=== PATIENT | male | born 1955 | race Caucasian/White ===

== ENCOUNTER 2024-03-03 07:33 | Inpatient (IN) | payer OTHER, MEDICAID ==
[~2024-03-03] VITALS: Ht 175.3 cm; Wt 65.8 kg
[2024-03-03 08:39] LABS: Basophils # (auto) 0.1 10 ^3/uL (0-0.2); Basophils % (auto) 0.3 % (0.0-2.0); Eosinophils # (auto) 0 10 ^3/uL (0-0.8); Hematocrit 48.4 % (41.0-53.0); Hemoglobin 17.5 g/dL (13.5-17.5); Lymphocytes # (auto) 0.7 10 ^3/uL (0.4-5.4); Lymphocytes % (auto) 3.4 % (10.0-50.0); Mean Corpuscular Hemoglobin 33.4 pg (28.0-32.0); Mean Corpuscular Hgb Conc. 36.1 g/dL (32.0-36.0); Mean Corpuscular Volume 92.6 fL (80.0-100.0); Monocytes # (auto) 0.5 10 ^3/uL (0-1.3); Monocytes % (auto) 2.7 % (0.0-12.0); Neutrophils # (auto) 18.2 10 ^3/uL (1.6-8.6); Neutrophils % (auto) 93.6 % (37.0-80.0); Nucleated Red Blood Cells % 0.5 %; Platelet Count (auto) 218 10^3/uL (140-450); Red Blood Cells 5.23 10^6/uL (4.5-5.90); Red Cell Distribution Width 12.6 % (11.8-14.3); White Blood Cell 19.5 10^3/uL (4.4-10.8)
[2024-03-03 08:43] LABS: Chloride 98 mmol/L (98-107); Sodium 140 mmol/L (136-145)
[2024-03-03 08:44] LABS: Anion Gap 11 (5-15); Carbon Dioxide 31 mmol/L (20-31)
[2024-03-03 08:50] LABS: BUN/Creatinine Ratio 12.9 (10.0-20.0)
[2024-03-03 08:55] LABS: Blood Urea Nitrogen 27 mg/dL (9-23); Calcium 10.9 mg/dL (8.7-10.4); Glucose 146 mg/dL (74-106)
[2024-03-03] MEDS: NITROGLYCERIN 0.4 MG SL TAB SL ONE (09:17)
[2024-03-03] MEDS: ONDANSETRON ODT 4 MG TAB PO ONE (09:18)
[2024-03-03 09:26] LABS: Lipase 33 U/L (12-53)
[2024-03-03] MEDS: POTASSIUM CHL 20 Meq TABLET PO ONE (10:22)
--- NOTE | 2024-03-03 10:26 | ED.PDOC ---
History of Present Illness HPI Comments 68 y/o M, with a Hx of HTN, bilateral AKA s/p MRSA (R-leg) and DVT (L-leg), and tobacco use, is BIBA for c/o non-radiating, sternal chest pain, nausea, and dry- heaving since 0300, this morning. Patient reports on sudden and unprovoked onset of symptoms that awoke him from his sleep, this morning, that he comments on being constant and "crushing" in quality, with no prior Hx of in the past. Patient endorses no further relevant or pertinent Hx in addition to recent stress, strenuous activities, travel, spoiled food or contaminated fluid intake, sick contact, or substance use/exposure, with exception of tobacco cigarette use and not taking his Clonidine medication, this morning, due to the pain. He denies having any shortness of breath, palpitations, vomiting, fever, chills, or other associated symptoms or modifiers at this time. 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, Medications, Allergies Allergies: Coded Allergies: NO KNOWN ALLERGIES (Unverified , 03/03/24) Home Meds Reported Medications Umeclidinium-Vilanterol (Anoro Ellipta 62.5-25 Mcg/INH) 1 Aer Aer 03/03/24 Albuterol Sulfate (Albuterol Sulfate Hfa) 108 Mcg/Act Aer, INH 03/03/24 Chlorthalidone (Chlorthalidone) 25 Mg Tab, 1 TAB PO DAILY 03/03/24 Clonidine Hydrochloride (Clonidine Hcl) 0.2 Mg Tab, 1 TAB PO TID 03/03/24 Verapamil Hcl (Verapamil Hcl Er) 180 Mg Tab, 1 TAB PO DAILY 03/03/24 Gabapentin (Gabapentin) 600 Mg Tab, 1 TAB PO BID 03/03/24 Aspirin (Chewable Aspirin) 81 Mg Chw, 1 TAB PO DAILY 03/03/24 Tamsulosin Hcl (Tamsulosin Hcl) 0.4 Mg Cap, 1 CAP PO 03/03/24 Enalapril Maleate (Enalapril Maleate) 20 Mg Tab, PO 03/03/24 Metoprolol Tartrate (LOPRESSOR TABLET) 50 Mg Tb, 1 TAB PO BID 03/03/24 Information Source: Patient, Emergency Med Personnel Mode of Arrival: EMS Severity: Moderate Timing: Hours Duration: Since onset Prehospital treatment: 12 Lead EKG, Victim Advocate Past Medical History PAST MEDICAL HISTORY: HTN Past Medical History (Other): MRSA, DVT Surgical History: AKA (bilateral ) Family History Family History: Unknown Social History Smoker: Cigarettes, Less Than 1 Pack/Day (1-2 cigarettes ) Alcohol: Denies ETOH Use Drugs: Denies Drug Use Lives In: Home Cardiovascular: reports: chest pain Gastrointestinal: reports: nausea, others (dry-heaving ) All Other Systems: Reviewed and Negative (negative otherwise stated in HPI) Physical Exam General Appearance: No Apparent Distress, Normal HEENT: Normal ENT Inspection, Pharynx Normal, TMs Normal Neck: Full Range of Motion, Non-Tender, Normal, Normal Inspection Respiratory: Chest Non-Tender, Lungs Clear, No Accessory Muscle Use, No Respira tory Distress, Normal Breath Sounds Cardiovascular: No Edema, No JVD, No Murmur, No Gallop, Normal Peripheral Pulses, Regular Rate/Rhythm Breast Exam: Deferred Gastrointestinal: No Organomegaly, Non Tender, No Pulsatile Mass, Normal Bowel Sounds, Soft Genitalia: Deferred Pelvic: Deferred Rectal: Deferred Extremities: No calf tenderness, Normal capillary refill, Non-tender, No pedal edema, Other (bilateral above) Musculoskeletal : Apperance: Normal Neurologic: Alert, equipment service lead II-XII nml as Tested, No Motor Deficits, Normal Affect, Normal Mood, No Sensory Deficits Cerebellar Function: Normal Reflexes: Normal Skin: Dry, Normal Color, Warm Lymphatic: No Adenopathy Was a procedure done? Was a procedure done?: No EKG EKG : Pulse Rate (adult): 89 [employer]: Normal Cardiac Rhythm: NSR, PVC's Block: None Hypertrophy: None ST: Nonsp Differential Dx Considerations may include: UT, PE, ACS, pericarditis, costochondritis, angina, anxiety, gastritis, gastroenteritis, viral syndrome, electrolyte imbalance X-Ray, Labs, Meds, VS Vital Signs Date Time Temp Pulse Resp B/P (MAP) Pulse Ox O2 Delivery O2 Flow Rate FiO2 03/03/24 10:28 168/75 03/03/24 10:26 89 03/03/24 09:52 108 03/03/24 09:52 98.7 108 20 168/95 (119) 94 98.7 03/03/24 09:17 186/95 03/03/24 08:43 98.6 84 18 197/99 (131) 96 03/03/24 08:41 98.7 76 18 159/99 (119) 76 98.7 03/03/24 08:41 76 03/03/24 08:16 89 Lab Test 03/03/24 10:22 03/03/24 08:12 Range/Units Troponin I High Sensitivity 13 11 </=54 ng/L White Blood Count 19.5 H 4.4-10.8 10^3/uL Red Blood Count 5.23 4.5-5.90 10^6/uL Hemoglobin 17.5 13.5-17.5 g/dL Hematocrit 48.4 41.0-53.0 % Mean Corpuscular Volume 92.6 80.0-100.0 fL Mean Corpuscular Hemoglobin 33.4 H 28.0-32.0 pg Mean Corpuscular Hemoglobin Concent 36.1 H 32.0-36.0 g/dL Red Cell Distribution Width 12.6 11.8-14.3 % Platelet Count 218 140-450 10^3/uL Mean Platelet Volume 7.2 6.9-10.8 fL Neutrophils (%) (Auto) 93.6 H 37.0-80.0 % Lymphocytes (%) (Auto) 3.4 L 10.0-50.0 % Monocytes (%) (Auto) 2.7 0.0-12.0 % Eosinophils (%) (Auto) 0.0 0.0-7.0 % Basophils (%) (Auto) 0.3 0.0-2.0 % Neutrophils # (Auto) 18.2 H 1.6-8.6 10 ^3/uL Lymphocytes # (Auto) 0.7 0.4-5.4 10 ^3/uL Monocytes # (Auto) 0.5 0-1.3 10 ^3/uL Eosinophils # (Auto) 0 0-0.8 10 ^3/uL Basophils # (Auto) 0.1 0-0.2 10 ^3/uL Nucleated Red Blood Cells 0.5 % Sodium Level 140 136-145 mmol/L Potassium Level 3.0 L 3.5-5.1 mmol/L Chloride Level 98 98-107 mmol/L Carbon Dioxide Level 31 20-31 mmol/L Anion Gap 11 5-15 Blood Urea Nitrogen 27 H 9-23 mg/dL Creatinine 2.09 H 0.700-1.30 mg/dL Glomerular Filtration Rate Calc 34 >90 mL/min BUN/Creatinine Ratio 12.9 10.0-20.0 Serum Glucose 146 H 74-106 mg/dL Hemoglobin A1c 5.3 <5.7 % A1C Calcium Level 10.9 H 8.7-10.4 mg/dL Lipase 33 12-53 U/L Current Medications Medications (Trade) Dose Ordered Sig/Isabel Route Start Time Stop Time Status Last Admin Nitroglycerin (Ntrostat Sublingual) 0.4 mg ONCE ONCE SL 03/03/24 09:15 03/03/24 09:16 DC 03/03/24 09:17 Ondansetron HCl (Zofran Po) 4 mg ONCE ONCE PO 03/03/24 09:15 03/03/24 09:16 DC 03/03/24 09:18 Sodium Chloride 500 ml @ 500 mls/hr Q1H ONCE IV 03/03/24 10:15 03/03/24 11:14 DC 03/03/24 10:28 Potassium Chloride (Klor-Con Tablet) 40 meq ONCE ONCE PO 03/03/24 10:15 03/03/24 10:16 DC 03/03/24 10:22 Hydralazine HCl (Apresoline Injection) 10 mg Q6HP PRN IV 03/03/24 10:30 03/03/24 16:30 [place] [address] Ph: [phone] DIAGNOSTIC IMAGING Diagnostic Imaging Report : [id number] Signed PATIENT: MARY JO KATZ ACCT: [id number] UNIT: [id number] : 1955 LOC: TELE ROOM / BED: [address] [place] [address] AGE / SEX: 68 / M ADM STATUS: ADM IN SERVICE 1045 ORDERING PHYSICIAN: VANESSA CRUZ PROCEDURE(s): ABPL - CT AB PEL WO CON-NO ORAL OR IV REASON: epigastric pain ORDER NUMBER(s): [id number], ACCESSION NUMBER(s): [id number] Exam: CT CT AB PEL WO CON-NO ORAL OR IV History: epigastric pain Comparison Study: None Technique: Multidetector spiral CT of the abdomen was performed from lung bases to pubic symphysis. Imaging was performed without IV contrast. Axial, coronal and sagittal multiplanar reformats were obtained from the axial data set by the technologist. Radiation Dose : 1. Abdomen/Pelvis: CTDIvol 8.0 mGy, DLP 413.81 mGy*cm. Findings: Evaluation of solid organs is limited due to lack of intravenous contrast use. Lung Bases: Nodular densities in the left lower lobe may reflect mild pneumonia Liver: The liver is normal in size. No focal lesions. Gallbladder and Biliary Tree: Unremarkable Spleen: Unremarkable Pancreas: The pancreas is grossly normal in appearance. Adrenal Glands: Unremarkable Kidneys: Kidneys are grossly normal without calculi or hydronephrosis. Bladder: Grossly unremarkable for degree of distention. Bowel: The stomach is grossly normal in appearance. Moderate concentric wall thickening of the descending colon and sigmoid colon, suggestive of mild infectious/inflammatory colitis . The appendix is not visualized; however, no secondary findings of acute appendicitis identified. Ascites: Absent Lymphadenopathy: No mesenteric, retroperitoneal or periportal lymphadenopathy. Abdominal Wall and Mesentery: Unremarkable. Vasculature: The visualized abdominal aorta is normal in size and caliber. Evaluation of abdominal and pelvic vessels is limited due to lack of intravenous contrast. Pelvic Organs: Unremarkable Musculoskeletal: No aggressive focal bony lesions, acute fractures or dislocation. Moderate degenerative changes throughout the lumbar spine. Bilateral iliac artery stents are noted. IMPRESSION: 1. Moderate concentric wall thickening of the descending colon and sigmoid colon, suggestive of mild infectious/inflammatory colitis . 2. Nodular left lower lobe densities may reflect mild pneumonia. Radiation optimization: All CT scans at this facility use at least one of these dose optimization techniques: automated exposure control mA and/or kV adjustment per patient size (includes targeted exams where dose is matched to clinical indication) or iterative reconstruction. ATED BY: CAMERON EMMANUEL MD DICTATED DATE/TIME: 03/03/241313 SIGNED BY: CAMERON EMMANUEL MD SIGNED DATE/TIME: 03/03/241313 CC: [address] [address] Ph: [phone] DIAGNOSTIC IMAGING Diagnostic Imaging Report : [id number] Signed PATIENT: MARY JO KATZ ACCT: [id number] UNIT: [id number] : 1955 LOC: TELE ROOM / BED: [facility] / A AGE / SEX: 68 / M ADM STATUS: ADM IN SERVICE 41 ORDERING PHYSICIAN: VANESSA CRUZ PROCEDURE(s): CXR1 - CHEST XRAY 1 VIEW REASON: chest pain ORDER NUMBER(s): [id number], ACCESSION NUMBER(s): [id number] CHEST RADIOGRAPH Indication: chest pain Technique: Single frontal view of the chest was obtained COMPARISON: None FINDINGS: Lines and Tubes: None Lungs: Left basilar opacities may reflect atelectasis or mild pneumonia. Pleura: No effusion. No pneumothorax. Cardiomediastinal contours: Unremarkable Bones: Unremarkable IMPRESSION: 1. Left basilar opacities may reflect atelectasis or mild pneumonia ATED BY: CAMERON EMMANUEL MD DICTATED DATE/TIME: 03/03/241248 SIGNED BY: CAMERON EMMANUEL MD SIGNED DATE/TIME: 03/03/241248 CC: 68-year-old male presents here with chest discomfort. On my examination he reports it is pressure-like discomfort. I am concerned about cardiac disease. EKG does demonstrates nonspecific ST changes. Blood work has been done which demonstrates a leukocytosis of 19.5. Chest x-ray demonstrates questionable pneumonia. Although patient does not endorse any cough cold runny nose type of symptoms. Exact cause of his leukocytosis is unclear. Blood work also demonstrates potassium of 3.0 which is low. Also demonstrates evidence of acute kidney injury. First set troponin is negative. I am concerned about acute coronary syndrome. Hospitalist team has been consulted. Time of 1ST Reevaluation: 10:00 Reevaluation 1ST: Unchanged Patient Education/Counseling: Diagnosis, Treatment Family Education/Counseling: No Family Present Departure 1 Departure Time of Disposition: 10:10 Impression: Primary Impression: Chest pain Qualified Codes: R07.9 - Chest pain, unspecified Additional Impressions: Leukocytosis Qualified Codes: D72.829 - Elevated white blood cell count, unspecified Hyperkalemia ISABELA (acute kidney injury) Hypercalcemia Disposition: ADMITTED INPATIENT Admit to: Tele Condition: Guarded Critical Care Note Critical Care Time?: No Stability Stability form required: No Heart Score Heart Score: Heart Score Response (Comments) Value History Highly Suspicious 2 EKG Repolarization Disturb 1 Age >65 2 Risk Factors 1 or 2 risk factors 1 Troponin Normal limit 0 Total 6 I personally scribed for SHERRI GRANT MD ([email or web address]) on 03/03/24 at 10:26. Electronically submitted by Andrew Bertrand ([email or web address]). I personally scribed for SHERRI GRANT MD ([email or web address]) on 03/03/24 at 11:53. Electronically submitted by Andrew Bertrand ([email or web address]). I personally scribed for SHERRI GRANT MD ([email or web address]) on 03/03/24 at 15:58. Electronically submitted by Andrew Bertrand [email or web address]). SHERRI GRANT MD Mar 03, 2024 10:26
[2024-03-03] MEDS: SODIUM CHLORIDE 0.9% 500 ML IV ONE (10:28)
[2024-03-03] MEDS ORDERED: DEXTROSE (50%) 50ML SYRG IV PRN (10:30)
[2024-03-03] MEDS ORDERED: MORPHINE SULFATE 4 MG/ML SYR/VIAL IV PRN (11:00)
[2024-03-03] MEDS ORDERED: MORPHINE SULFATE INJ 2 MG/ml SYRG IV PRN (11:00)
[2024-03-03] MEDS ORDERED: NITROGLYCERIN 0.4 MG SL TAB SL PRN ×2 (11:00)
[2024-03-03] MEDS ORDERED: LORazepam 0.5 MG TAB PO PRN (11:00)
[2024-03-03] MEDS ORDERED: ENAL1TAB48 PO (11:08)
[2024-03-03] MEDS ORDERED: ALBU108A5 INH (11:08)
[2024-03-03] MEDS ORDERED: CHLO25TA2 PO (11:08)
[2024-03-03] MEDS ORDERED: CLON0.2T PO (11:08)
[2024-03-03] MEDS ORDERED: GABA-339 PO (11:08)
[2024-03-03] MEDS ORDERED: ASPI1CHW5 PO (11:08)
[2024-03-03] MEDS ORDERED: VERA180T60 PO (11:08)
[2024-03-03] MEDS ORDERED: MET50T PO (11:08)
[2024-03-03] MEDS ORDERED: TAMS0.4C39 PO (11:08)
[2024-03-03] MEDS ORDERED: UMEC1AER (11:08)
--- NOTE | 2024-03-03 11:10 | DVHHP2 ---
History of Present Illness Reason for Visit: Chest pain History of Present Illness Arthur Lara is a 68-year-old male with past medical history of hypertension and bilateral lower extremity amputee who presents to the ED for chest pain and shortness of breath, nausea, and abdominal pain x 1 day. Upon examination patient states that he has been having epigastric pain 8/10 currently. Patient also reports that he is a bilateral amputee wheelchair-bound, had both lower extremities amputated 4 years ago at [facility]. Patient reports that it was due to blood clots and a MRSA infection. Patient states for the last day he has been feeling fatigued. He also reports that he takes Flomax to help with vo iding. Patient reports that he did not take his morning medications today due to pain. Patient denies fever, chills, vomiting, diarrhea, and back pain. Cardiovascular: HTN Past Surgical History Bilateral lower extremity amputee 4 years ago at [facility] Smoke: <1 pack per day ALCOHOL: occassional Drugs: Marijuana Lives: with Family Domestic Violence: Neg Review of Systems Constitutional: No: Fever, Chills, Sweats, Weakness, Malaise, Other Eyes: No: Pain, Vision change, Conjunctivae inflammation, Eyelid inflammation, Other, Redness ENT: No: Ear pain, Ear discharge, Nose pain, Nose discharge, Nose congestion, Mouth pain, Mouth swelling, Throat pain, Throat swelling, Other Respiratory: Shortness of breath; No: Cough, Dry, SOB with excertion, Wheezing, Hemoptysis, Pleuritic Pain, Sputum, Wheezing, Other Cardiovascular: Chest Pain; No: Palpitations, Orthopnea, Paroxysmal Noc. Dyspnea, Edema, Lt Headedness, Other Gastrointestinal: Nausea, Abdominal Pain; No: Vomiting, Diarrhea, Constipation, Melena, Hematochezia, Other Genitourinary: No Dysuria, No Frequency, No Incontinence, No Hematuria, No Retention, No Other Musculoskeletal: No: other, neck pain, shoulder pain, arm pain, back pain, hand pain, leg pain, foot pain Skin: No: Rash, Lesions, Jaundice, Bruising, Other Neurological: No: Weakness, Numbness, Incoordination, Change in speech, Confusion, Seizures, Other Allergies: Coded Allergies: NO KNOWN ALLERGIES (Unverified , 03/03/24) Medications Current Medications Medications Dose Ordered Sig/Isabel Route Start Time Stop Time Status Last Admin Dose Admin Hydralazine HCl 10 mg Q6HP PRN IV 03/03/24 10:30 UNV Exam Vital Signs Vital Signs Date Time Temp Pulse Resp B/P (MAP) Pulse Ox O2 Delivery O2 Flow Rate FiO2 03/03/24 09:52 108 03/03/24 09:52 98.7 20 168/95 (119) 94 98.7 General Appearance: Alert, Oriented X3, Cooperative, mild distress HEENT: Atraumatic, PERRLA, EOMI Respiratory: Normal air movement Cardiovascular: Normal S1, Normal S2 Abdominal: Soft Extremities: Other (Bilateral lower extremity amputee) Skin: No significant lesion Neuro: Normal speech, Normal tone Psych/Mental Status: Mental status NL, Mood NL Labs/Xrays Labs Test 03/03/24 08:12 Range/Units White Blood Count 19.5 H 4.4-10.8 10^3/uL Red Blood Count 5.23 4.5-5.90 10^6/uL Hemoglobin 17.5 13.5-17.5 g/dL Hematocrit 48.4 41.0-53.0 % Mean Corpuscular Volume 92.6 80.0-100.0 fL Mean Corpuscular Hemoglobin 33.4 H 28.0-32.0 pg Mean Corpuscular Hemoglobin Concent 36.1 H 32.0-36.0 g/dL Red Cell Distribution Width 12.6 11.8-14.3 % Platelet Count 218 140-450 10^3/uL Mean Platelet Volume 7.2 6.9-10.8 fL Neutrophils (%) (Auto) 93.6 H 37.0-80.0 % Lymphocytes (%) (Auto) 3.4 L 10.0-50.0 % Monocytes (%) (Auto) 2.7 0.0-12.0 % Eosinophils (%) (Auto) 0.0 0.0-7.0 % Basophils (%) (Auto) 0.3 0.0-2.0 % Neutrophils # (Auto) 18.2 H 1.6-8.6 10 ^3/uL Lymphocytes # (Auto) 0.7 0.4-5.4 10 ^3/uL Monocytes # (Auto) 0.5 0-1.3 10 ^3/uL Eosinophils # (Auto) 0 0-0.8 10 ^3/uL Basophils # (Auto) 0.1 0-0.2 10 ^3/uL Nucleated Red Blood Cells 0.5 % Sodium Level 140 136-145 mmol/L Potassium Level 3.0 L 3.5-5.1 mmol/L Chloride Level 98 98-107 mmol/L Carbon Dioxide Level 31 20-31 mmol/L Anion Gap 11 5-15 Blood Urea Nitrogen 27 H 9-23 mg/dL Creatinine 2.09 H 0.700-1.30 mg/dL Glomerular Filtration Rate Calc 34 >90 mL/min BUN/Creatinine Ratio 12.9 10.0-20.0 Serum Glucose 146 H 74-106 mg/dL Calcium Level 10.9 H 8.7-10.4 mg/dL Lipase 33 12-53 U/L Exam: CT CT AB PEL WO CON-NO ORAL OR IV History: epigastric pain 1. Abdomen/Pelvis: CTDIvol 8.0 mGy, DLP 413.81 mGy*cm. Findings: Evaluation of solid organs is limited due to lack of intravenous contrast use. Lung Bases: Nodular densities in the left lower lobe may reflect mild pneumonia Liver: The liver is normal in size. No focal lesions. Gallbladder and Biliary Tree: Unremarkable Spleen: Unremarkable Pancreas: The pancreas is grossly normal in appearance. Adrenal Glands: Unremarkable Kidneys: Kidneys are grossly normal without calculi or hydronephrosis. Bladder: Grossly unremarkable for degree of distention. Bowel: The stomach is grossly normal in appearance. Moderate concentric wall thickening of the descending colon and sigmoid colon, suggestive of mild infectious/inflammatory colitis . The appendix is not visualized; however, no secondary findings of acute appendicitis identified. Ascites: Absent Lymphadenopathy: No mesenteric, retroperitoneal or periportal lymphadenopathy. Abdominal Wall and Mesentery: Unremarkable. Vasculature: The visualized abdominal aorta is normal in size and caliber. Evaluation of abdominal and pelvic vessels is limited due to lack of intravenous contrast. Pelvic Organs: Unremarkable Musculoskeletal: No aggressive focal bony lesions, acute fractures or dislocation. Moderate degenerative changes throughout the lumbar spine. Bilateral iliac artery stents are noted. IMPRESSION: 1. Moderate concentric wall thickening of the descending colon and sigmoid colon, suggestive of mild infectious/inflammatory colitis . 2. Nodular left lower lobe densities may reflect mild pneumonia. CHEST RADIOGRAPH Indication: chest pain Technique: Single frontal view of the chest was obtained COMPARISON: None FINDINGS: Lines and Tubes: None Lungs: Left basilar opacities may reflect atelectasis or mild pneumonia. Pleura: No effusion. No pneumothorax. Cardiomediastinal contours: Unremarkable Bones: Unremarkable IMPRESSION: 1. Left basilar opacities may reflect atelectasis or mild pneumonia Assessment/Plan Assessment/Plan Assessment: Rule out ACS Intractable abdominal pain Leukocytosis ISABELA on CKD Hypokalemia Hypercalcemia Inflammatory colitis suspected PNA History of bilateral lower extremity amputee wheelchair-bound sign 4 years ago Hypertension Plan: Admit to tele IV fluids Pain management IV antibiotics Antiemetics Cards cx Replete lytes EKG Chest x-ray CT abdomen pelvis HgbA1C ISS and accuchecks Trend Troponin's UA UDS Diet As tolerated GI ppx Monitor labs Home medications reconciled Plan discussed with: Patient My Orders Orders - VANESSA CRUZ Procedure Category Date Status Time Hydralazine Injection PHA 03/03/24 Logged (Apresoline Inject 10:30 Hemoglobin A1c LAB 03/03/24 Verified 10:17 Glucose Blood PHA 03/03/24 Verified (Accu-Chek Comfort 11:30 Bedtime Insulin Scale PHA 03/03/24 Verified 22:00 Moderate Insulin Ss PHA 03/03/24 Verified 11:30 Dextrose 50% Syringe PHA 03/03/24 Verified 10:30 Date of Service: Mar 03, 2024 Billing Provider: VANESSA CRUZ Common Visit Codes: [id number] INP/OBS CARE (MOD) VANESSA CRUZ Mar 03, 2024 11:10
[2024-03-03] MEDS: ACCU-CHEK COMFORT CURVE STRIP VI SCH (11:30)
[2024-03-03] MEDS: MAALOX PLUS or MAALOX 30 ML PO ONE (12:08)
[2024-03-03] MEDS: ASPirin 81 mg TAB PO ONE (12:09)
[2024-03-03] MEDS: cefTRIAXone 1GM/50ML D5W 50 ML IV ONE (12:10)
[2024-03-03 12:24] LABS: Urine Bacteria None Seen /hpf (None Seen)
[2024-03-03] MEDS: InsuLIN REG 1unit/0.01ml Soln (100units/ml) SC SCH ×2 (12:28→22:40)
[2024-03-03 12:37] LABS: Urine Blood 1+ /uL (Negative); Urine Clarity Clear (Clear); Urine Color Yellow (Yellow); Urine Hyaline Cast MANY /lpf (0 - 2); Urine Mucus FEW (None Seen); Urine Protein, UAD 2+ (Negative); Urine Specific Gravity 1.023 (1.001-1.035); Urine Urobilinogen Normal (Negative); Urine WBC 1 /hpf (0 - 3); Urine pH 5.5 (5.0-9.0)
[2024-03-03 12:46] LABS: Amphetamine Screen, Urine Pos (NEGATIVE); Barbiturate Scree,Urine Neg (NEGATIVE); Benzodiazephine Screen, Urine Neg (NEGATIVE); Cannabinoid Screen, Urine Pos (NEGATIVE); Cocaine Screen, Urine Neg (NEGATIVE); Opiate Scree,Urine Neg (NEGATIVE); Phencyclidine Screen, Urine Neg (NEGATIVE)
--- NOTE | 2024-03-03 12:51 | DVH ---
CHEST RADIOGRAPH Indication: chest pain Technique: Single frontal view of the chest was obtained COMPARISON: None FINDINGS: Lines and Tubes: None Lungs: Left basilar opacities may reflect atelectasis or mild pneumonia. Pleura: No effusion. No pneumothorax. Cardiomediastinal contours: Unremarkable Bones: Unremarkable IMPRESSION: 1. Left basilar opacities may reflect atelectasis or mild pneumonia
--- NOTE | 2024-03-03 13:17 | DVH ---
Exam: CT CT AB PEL WO CON-NO ORAL OR IV History: epigastric pain Comparison Study: None Technique: Multidetector spiral CT of the abdomen was performed from lung bases to pubic symphysis. Imaging was performed without IV contrast. Axial, coronal and sagittal multiplanar reformats were ob tained from the axial data set by the technologist. Radiation Dose : 1. Abdomen/Pelvis: CTDIvol 8.0 mGy, DLP 413.81 mGy*cm. Findings: Evaluation of solid organs is limited due to lack of intravenous contrast use. Lung Bases: Nodular densities in the left lower lobe may reflect mild pneumonia Liver: The liver is normal in size. No focal lesions. Gallbladder and Biliary Tree: Unremarkable Spleen: Unremarkable Pancreas: The pancreas is grossly normal in appearance. Adrenal Glands: Unremarkable Kidneys: Kidneys are grossly normal without calculi or hydronephrosis. Bladder: Grossly unremarkable for degree of distention. Bowel: The stomach is grossly normal in appearance. Moderate concentric wall thickening of the descen ding colon and sigmoid colon, suggestive of mild infectious/inflammatory colitis . The appendix is no t visualized; however, no secondary findings of acute appendicitis identified. Ascites: Absent Lymphadenopathy: No mesenteric, retroperitoneal or periportal lymphadenopathy. Abdominal Wall and Mesentery: Unremarkable. Vasculature: The visualized abdominal aorta is normal in size and caliber. Evaluation of abdominal a nd pelvic vessels is limited due to lack of intravenous contrast. Pelvic Organs: Unremarkable Musculoskeletal: No aggressive focal bony lesions, acute fractures or dislocation. Moderate degenerat evert changes throughout the lumbar spine. Bilateral iliac artery stents are noted. IMPRESSION: 1. Moderate concentric wall thickening of the descending colon and sigmoid colon, suggestive of mild infectious/inflammatory colitis . 2. Nodular left lower lobe densities may reflect mild pneumonia. Radiation optimization: All CT scans at this facility use at least one of these dose optimization romy hniques: automated exposure control mA and/or kV adjustment per patient size (includes targeted exam s where dose is matched to clinical indication) or iterative reconstruction.
[2024-03-03] MEDS: hydrALAZINE HCL 20 MG/ML VL IV PRN (16:30)
--- NOTE | 2024-03-03 17:27 | ECG ---
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
[2024-03-03] MEDS: metroNIDAZOLE 500MG/100ML 100 ML IV ONE (18:23)
[2024-03-03] MEDS: PANTOPRAZOLE 40 MG/10 ML VIAL INJ IV ONE (18:23)
[2024-03-03] MEDS: MORPHINE SULFATE INJ 2 MG/ml SYRG IV PRN (18:33)
[2024-03-03] MEDS: ONDANSETRON HCL 4 MG/2 ML VIAL IV PRN (22:38)
[2024-03-03] MEDS: metroNIDAZOLE 500MG/100ML 100 ML IV SCH (22:40)
[2024-03-03] MEDS: ACETAMINOPHEN 325 MG TAB PO PRN (22:46)
[2024-03-04] VITALS (10 sets, daily range): BP systolic 118–166; BP diastolic 78–99; PULSE 83–132; RESP 17–20; TEMP 98–99.1; O2SAT 91–95
[2024-03-04 06:35] LABS: Basophils # (auto) 0 10 ^3/uL (0-0.2); Basophils % (auto) 0.1 % (0.0-2.0); Eosinophils # (auto) 0 10 ^3/uL (0-0.8); Hematocrit 48.2 % (41.0-53.0); Lymphocytes # (auto) 0.9 10 ^3/uL (0.4-5.4); Lymphocytes % (auto) 4.3 % (10.0-50.0); Mean Corpuscular Hemoglobin 32.7 pg (28.0-32.0); Mean Corpuscular Hgb Conc. 35.3 g/dL (32.0-36.0); Mean Corpuscular Volume 92.6 fL (80.0-100.0); Monocytes # (auto) 1.8 10 ^3/uL (0-1.3); Monocytes % (auto) 8.5 % (0.0-12.0); Neutrophils # (auto) 17.9 10 ^3/uL (1.6-8.6); Neutrophils % (auto) 87.1 % (37.0-80.0); Platelet Count (auto) 143 10^3/uL (140-450); Red Blood Cells 5.21 10^6/uL (4.5-5.90); Red Cell Distribution Width 12.9 % (11.8-14.3); White Blood Cell 20.6 10^3/uL (4.4-10.8)
[2024-03-04 06:50] LABS: Albumin 4.3 g/dL (3.2-4.8); Anion Gap 12 (5-15); BUN/Creatinine Ratio 18.8 (10.0-20.0); Carbon Dioxide 27 mmol/L (20-31); Chloride 100 mmol/L (98-107); Sodium 139 mmol/L (136-145)
[2024-03-04 06:51] LABS: Bilirubin, Total 0.8 mg/dL (0.2-1.0); Total Protein 7.2 g/dL (5.7-8.2)
[2024-03-04 06:54] LABS: Alanine Aminotransferase 44 U/L (7-40); Alkaline Phosphatase 119 U/L (46-116); Aspartate Aminotransferase 54 U/L (13-40); Blood Urea Nitrogen 27 mg/dL (9-23); Glucose 148 mg/dL (74-106)
[2024-03-04 06:55] LABS: Potassium 2.5 mmol/L (3.5-5.1)
[2024-03-04] MEDS ORDERED: SOD CHL 0.45% 1,000 ML IV SCH ×2 (07:15→07:30)
[2024-03-04] MEDS: MORPHINE SULFATE INJ 2 MG/ml SYRG IV PRN (07:26)
[2024-03-04] MEDS: hydrALAZINE HCL 20 MG/ML VL IV ONE (08:45)
[2024-03-04] MEDS ORDERED: TAMSULOSIN HYDROCHLORIDE 0.4 MG CAP PO SCH (09:00)
[2024-03-04] MEDS: MAGNESIUM SULFATE 1GM/100ML 100 ML IV SCH (09:49)
[2024-03-04] MEDS: ASPirin 81 mg TAB PO SCH ×2 (10:00→10:07)
[2024-03-04] MEDS: DOCUSATE SOD 100 MG CAP PO SCH (10:06)
[2024-03-04] MEDS: CHLORTHALIDONE 25 MG TAB PO SCH (10:07)
[2024-03-04] MEDS: PANTOPRAZOLE 40 MG/10 ML VIAL INJ IV SCH (10:07)
--- NOTE | 2024-03-04 10:34 | DVHPNRES ---
Progress Note Date Seen: Mar 04, 2024 Resident Creating Document: MY JIMENEZ RESIDENT Has the PT tested + for MRSA If YES, has PT been informed?: No Medical Necessity Reason Pt with a Central, PICC or Fol: No Subjective Review of Systems A 68 -year-old PMHx hypertension, BPH, Bilateral lower extremity amputee 4 years ago at [facility] due to possible septic shock MRSA infection who came to ED due to chest pain, SOB for 1 day since day of admission. The pain is located more in the epigastric area. Currents smoker of cigarretes and marihuana Objective vital signs Vital Sign Date Time Temp Pulse Resp B/P (MAP) Pulse Ox O2 Delivery O2 Flow Rate FiO2 03/04/24 08:45 168/88 03/04/24 08:20 99.0 120 20 93 99.0 03/04/24 01:15 Room Air* 0 21 Total Intake and Output 03/03/24 03/03/24 03/04/24 15:00 23:00 07:00 Intake Total 200 ml Output Total 300 ml Balance -100 ml medications Current Medications Medications Dose Ordered Sig/Isabel Route Start Time Stop Time Status Last Admin Dose Admin Hydralazine HCl 10 mg Q6HP PRN IV 03/03/24 10:30 03/04/24 04:43 10 MG Diagnostic Test (Pha) 1 strip ACHS 03/03/24 11:30 03/04/24 05:55 1 STRIP Insulin Human Regular HS SC 03/03/24 22:00 Insulin Human Regular AC SC 03/03/24 11:30 03/04/24 06:11 2 UNITS Dextrose 50 ml UD PRN IV 03/03/24 10:30 Aspirin 81 mg DAILY PO 03/04/24 10:00 Morphine Sulfate 2 mg Q30MP PRN IV 03/03/24 11:00 Acetaminophen 650 mg Q6HP PRN PO 03/03/24 11:00 03/04/24 04:42 650 MG Lorazepam 0.5 mg Q6HP PRN PO 03/03/24 11:00 Docusate Sodium 100 mg DAILY PO 03/04/24 10:00 Nitroglycerin 0.4 mg Q5MINP PRN SL 03/03/24 11:00 Ondansetron HCl 4 mg Q4HP PRN IV 03/03/24 11:00 Nitroglycerin 0.4 mg Q5MINP PRN SL 03/03/24 11:00 UNV Morphine Sulfate 2 mg Q30M PRN IV 03/03/24 11:00 UNV Ceftriaxone Sodium 50 ml @ 100 mls/hr DAILY@09 IV 03/04/24 09:00 Metronidazole 100 ml @ 100 mls/hr Q8HR IV 03/03/24 22:00 03/04/24 05:55 100 MLS/HR Pantoprazole Sodium 40 mg DAILY IV 03/04/24 10:00 Morphine Sulfate 2 mg Q4HPRN PRN IV 03/04/24 07:00 03/04/24 07:26 2 MG Chlorthalidone 25 mg DAILY PO 03/04/24 10:00 Verapamil HCl 180 mg DAILY PO 03/04/24 10:00 Aspirin 81 mg DAILY PO 03/04/24 10:00 Patient Own Medication 1 tab TID PO 03/04/24 14:00 UNV Gabapentin 600 mg BID PO 03/04/24 10:00 Carvedilol 3.125 mg Q12HR PO 03/04/24 10:00 Potassium Chloride 100 ml @ 50 mls/hr Q2H IV 03/04/24 07:15 03/04/24 13:14 Azithromycin 250 ml @ 125 mls/hr DAILY IV 03/05/24 10:00 Sodium Chloride 1,000 ml @ 0 mls/hr Q0M IV 03/04/24 07:30 Tamsulosin HCl 0.4 mg DAILY@1800 PO 03/04/24 18:00 Examination GEN: Healthy appearing, well-developed, NAD. PSYCH: Good Judgment. AOx3. Normal memory, mood, and affect. HEENT -Head: normocephalic atraumatic, no facial trauma, neck is supple -Eyes: PERRL, EOMI. No discharge or redness; -Ears: External ears are normal. Normal TMs. -Nose: Normal nares. -Mouth and throat: MMM. Normal gums, mucosa, palate,. Good dentition. NECK: Supple, with no masses. CV: RRR, no m/r/g. LUNGS: respiratory effort normal, speaks in full sentences, no tripod position, no accessory muscle use. Lungs clear to auscultation without rhonchi, wheezes, rales ABD: Soft, ND/NT. No evidence of fluid wave. No pulsatile masses on exam, rebound tenderness, Cardoso sign or pain over Mcburney's point. : N/A SKIN: Warm, well perfused. No skin rashes or abnormal lesions. MSK: No deformities or signs of scoliosis. Normal gait. EXT: absence bilateral legs NEURO: Ambulating with no limitations. Normal muscle strength and tone. No focal deficits laboratory and microbiology Laboratory Tests 03/04/24 05:49 Test 03/04/24 05:49 Range/Units Serum Glucose 148 H 74-106 mg/dL Labs and/or images reviewed: Labs reviewed by me, Image(s) reviewed by me Problem List/Assessment/Plan Problem List/Assessment/Plan #Sepsis due to pneumonia gram +/gram - and Possible infectious colitis #Chest/epigastric abdominal pain due to pneumonia gram +/gram - #ACS ruled out #Hypokalemia #ISABELA hemodynamically mediated; due to sepsis; VMN #Hypercalcemia resolved #History of bilateral lower extremity amputee wheelchair-bound sign 4 years ago #Hypertensive urgency resolved #PAD? #Polysubstance use disorder #BPH Images: Abdomen/pelvis CT scan 1. Moderate concentric wall thickening of the descending colon and sigmoid colon, suggestive of mild infectious/inflammatory colitis . 2. Nodular left lower lobe densities may reflect mild pneumonia. Cardiac and diabetic diet Troponin neg EKG: PVCs, normal HR Potassium IV Fluids: 60cc/L sepsis and ISABELA AB: Azithromycin, ceftriaxone and metronidazole BP: carvedilol, verapamil, chlorthalidone, hydralazine PRN Keep aspirin Keep gabapentin DVT? Goals of care discussed for 20 minutes; full code Case discussed with Dr Cowart Plan discussed with: Patient, Other (rn) Addendum Addendum Addendum I was physically present for the nix portions of the service provided to patient by THE RESIDENT. I have reviewed the documentation, discussed the case with resident and agree with the resident's documentation except as noted. Also the patient's clinical case was discussed with the patient's nurse. This medical document was created using an electronic medical record system with computerized dictation system. Although this document has been carefully reviewed, there might still be some phonetic and typographical errors. These areas are purely typographical due to imperfections of the software programs, and do not reflect any compromise in the patient's medical care. Late signature. Date of Service: Mar 04, 2024 Billing Provider: COLE COWART MD Common Visit Codes: [id number] INP/OBS CARE(HIGH) Secondary Visit Codes: [id number] CARE PLAN 30 MINUTES (20 minutes) MY JIMENEZ RESIDENT Mar 04, 2024 10:34 COLE COWART MD Mar 05, 2024 12:29
[2024-03-04 11:00] LABS: Chloride 99 mmol/L (98-107); Sodium 136 mmol/L (136-145)
[2024-03-04 11:01] LABS: Anion Gap 9 (5-15); Calcium 9.9 mg/dL (8.7-10.4); Carbon Dioxide 28 mmol/L (20-31)
[2024-03-04 11:06] LABS: BUN/Creatinine Ratio 20.2 (10.0-20.0)
[2024-03-04 11:07] LABS: Magnesium 2.4 mg/dL (1.6-2.6)
[2024-03-04 11:09] LABS: Glucose 191 mg/dL (74-106); Potassium 2.7 mmol/L (3.5-5.1)
[2024-03-04 11:10] LABS: Blood Urea Nitrogen 26 mg/dL (9-23)
[2024-03-04] MEDS: VERAPAMIL HCL 180mg SR tab PO SCH (12:03)
[2024-03-04] MEDS: CARVEDILOL 3.125 MG TAB PO SCH ×2 (12:03→21:53)
[2024-03-04] MEDS: GABAPENTIN 300 MG CAP PO SCH (12:03)
[2024-03-04] MEDS: SODIUM CHLORIDE 0.9% 1,000 ML IV SCH (12:07)
--- NOTE | 2024-03-04 13:43 | DVHSR ---
APPROVED REPORT EXAM: Two-dimensional and M-mode echocardiogram with Doppler and color Doppler. Blood Pressure: 158/87 mmHg INDICATION Chest Pain RISK FACTORS Height: 69, Weight: 137 DIMENSIONS LVDd3.2 (3.8-5.7cm)LA (2D)4.1 (1.9-4.0cm)Aortic Root4.3 (2.0-3.7cm) LVDs1.9 (2.5-4.0cm)LA (MM) (1.9-4.0cm)Aortic Cusp Exc1.8 (1.5-2.0cm) EF (%) 73.0 (55-70%)Rt. Atrium (1.9-4.0cm)Asc. Aorta cm Mitral Valve MitralMitral Stenosis E wave1.49m/sMV Mean GR.mmHg E/A ratio0.02D MVAcm2 Aortic Valve Aortic ValveAortic Stenosis V11.45m/Luis Carlos Mean GR.6mmHg V21.77m/Luis Carlos Peak GR.13mmHg LVOT Diameter1.7 (1.8-2.4cm)Doppler AVA1.86cm2 Pulmonic Valve V21.38m/s Other Information Technically limited study due to body habitus. Patient continued to move during exam Conclusion Normal left ventricular size and dimension. Normal ventricular systolic function estimated ejection fraction 55%. There is a grade diastolic dysfunction. Normal right ventricular size and dimension. Normal right ventricular systolic function. Normal biatrial size dimension. Normal aortic valve structure and function. Normal mitral valve structure and function. Normal tricuspid valve structure and function. Pulmonary valve is grossly normal. No pericardial effusion.
--- NOTE | 2024-03-04 13:54 | DVHINCON2 ---
Date Seen: Mar 04, 2024 Referring Physician Jigar Reason for Consultation Chest Pain History of Present Illness 68-year-old male with PMH for HTN, PVD, bilateral lower extremity amputee from DVT/infection in setting of PVD, presents to the hospital with abdominal pain, chest tightness, and shortness of breath x1 day. Patient has been having significant amount of epigastric pain. Patient stated that he also had some chest pressure at 1 point noted to be more epigastric per patient, nonradiating, increases with inspiration, sits at the top of his abdomen area. Upon evaluation in the ER patient noted to be hypokalemic potassium 2.5. Troponins trending negative x3. Creatinine 2.09. EKG reviewed and shows sinus rhythm at 89 beats per minute with PVCs. Nonspecific ST and T-wave abnormality. Past Medical History HTN, substance abuse, PVD, bilateral AKA amputee Past Surgical History Bilateral AKA amputee Family History: Diabetes mellitus G8 FATHER Family History Denies pertinent family cardiac history Social History Continues tobacco. Denies amphetamine use though has history use in the past, positive for marijuana use. Denies alcohol. Allergies: Coded Allergies: NO KNOWN ALLERGIES (Unverified , 03/03/24) Home Meds Reported Medications Umeclidinium-Vilanterol (Anoro Ellipta 62.5-25 Mcg/INH) 1 Aer Aer 03/03/24 Albuterol Sulfate (Albuterol Sulfate Hfa) 108 Mcg/Act Aer, INH 03/03/24 Chlorthalidone (Chlorthalidone) 25 Mg Tab, 1 TAB PO DAILY 03/03/24 Clonidine Hydrochloride (Clonidine Hcl) 0.2 Mg Tab, 1 TAB PO TID 03/03/24 Verapamil Hcl (Verapamil Hcl Er) 180 Mg Tab, 1 TAB PO DAILY 03/03/24 Gabapentin (Gabapentin) 600 Mg Tab, 1 TAB PO BID 03/03/24 Aspirin (Chewable Aspirin) 81 Mg Chw, 1 TAB PO DAILY 03/03/24 Tamsulosin Hcl (Tamsulosin Hcl) 0.4 Mg Cap, 1 CAP PO 03/03/24 Enalapril Maleate (Enalapril Maleate) 20 Mg Tab, PO 03/03/24 Metoprolol Tartrate (LOPRESSOR TABLET) 50 Mg Tb, 1 TAB PO BID 03/03/24 Current Medications Current Medications Medications (Trade) Dose Ordered Sig/Isabel Route PRN Reason Start Time Stop Time Status Last Admin Insulin Human Regular (InsuLIN R) HS SC 03/03/24 22:00 Aspirin 81 mg DAILY PO 03/04/24 10:00 03/04/24 11:53 DC 03/04/24 10:07 Docusate Sodium (Colace Capsule) 100 mg DAILY PO 03/04/24 10:00 03/04/24 10:06 Ceftriaxone Sodium 50 ml @ 100 mls/hr DAILY@09 IV 03/04/24 09:00 Morphine Sulfate 1 mg Q6HPRN PRN IV SEVERE PAIN (7-10 PAIN SCALE) 03/03/24 16:45 03/04/24 06:55 DC 03/04/24 06:04 Metronidazole 100 ml @ 100 mls/hr Q8HR IV 03/03/24 22:00 03/04/24 05:55 Pantoprazole Sodium (Protonix) 40 mg DAILY IV 03/04/24 10:00 03/04/24 10:07 Morphine Sulfate 2 mg Q4HPRN PRN IV SEVERE PAIN (7-10 PAIN SCALE) 03/04/24 07:00 03/04/24 12:08 Chlorthalidone (Chlorthalidone) 25 mg DAILY PO 03/04/24 10:00 03/04/24 10:07 Verapamil HCl (Calan Sr) 180 mg DAILY PO 03/04/24 10:00 03/04/24 12:03 Aspirin 81 mg DAILY PO 03/04/24 10:00 Clonidine HCl (Catapres Tablet) 0.2 mg TID PO 03/04/24 14:00 Gabapentin (Neurontin Capsule) 600 mg BID PO 03/04/24 10:00 03/04/24 12:03 Tamsulosin HCl (Flomax) 0.4 mg PC PO 03/04/24 09:00 03/04/24 09:44 DC Carvedilol (Coreg Tablet) 3.125 mg Q12HR PO 03/04/24 10:00 03/04/24 12:03 Sodium Chloride 1,000 ml @ 150 mls/hr Q6H40M IV 03/04/24 07:15 03/04/24 07:28 DC Magnesium Sulfate/ Dextrose 100 ml @ 100 mls/hr Q1HR IV 03/04/24 08:00 03/04/24 09:59 DC 03/04/24 12:03 Potassium Chloride 100 ml @ 50 mls/hr Q2H IV 03/04/24 07:15 03/04/24 13:14 DC Azithromycin 250 ml @ 125 mls/hr DAILY IV 03/05/24 10:00 Sodium Chloride 1,000 ml @ 0 mls/hr Q0M IV 03/04/24 07:30 03/04/24 10:13 DC Tamsulosin HCl (Flomax) 0.4 mg DAILY@1800 PO 03/04/24 18:00 Sodium Chloride 1,000 ml @ 60 mls/hr [id number] IV 03/04/24 10:15 03/04/24 12:07 Review of Systems Constitutional: No: Fever, Chills, Sweats, Weakness, Malaise, Other Eyes: No: Pain, Vision change, Conjunctivae inflammation, Eyelid inflammation, Other, Redness ENT: No: Ear pain, Ear discharge, Nose pain, Nose discharge, Nose congestion, Mouth pain, Mouth swelling, Throat pain, Throat swelling, Other Respiratory: No: Cough, Dry, Shortness of breath, SOB with exertion, Wheezing, Hemoptysis, Pleuritic Pain, Sputum, Wheezing, Other Cardiovascular: ; No: Chest Pain Palpitations, Orthopnea, Paroxysmal Noc. Dyspnea, Edema, Lt Headedness, Other Gastrointestinal: No: , Vomiting, , Constipation, Melena, Hematochezia, Other positive: Nausea, Abdominal Pain, Diarrhea Genitourinary: No Dysuria, No Frequency, No Incontinence, No Hematuria, No Retention, No Other Musculoskeletal: neck pain; No: other, shoulder pain, arm pain, back pain, hand pain, leg pain, foot pain Skin: No: Rash, Lesions, Jaundice, Bruising, Other Neurological: Other (Dizziness, headache.); No: Weakness, Numbness, Incoordination, Change in speech, Confusion, Seizures Vital Signs Vital Signs Date Time Temp Pulse Resp B/P (MAP) Pulse Ox O2 Delivery O2 Flow Rate FiO2 03/04/24 12:45 98.8 127 18 155/85 (108) 93 98.8 03/04/24 01:15 Room Air* 0 21 Physical Exam General appearance: Patient is well-developed, well-nourished, in no acute distress. HEENT: Exam shows: Normocephalic, atraumatic, PERRLA, EOMI Neck: Supple, no bruits Chest: Equal chest excursion bilaterally. Breath sounds normal-no rales or wheezes. Heart: Rhythm: Regular rate; no murmur or gallop Abdomen: Exam shows: Soft, tender, distended Musculoskeletal: No clubbing, no cyanosis, bilateral AKA amputee Dermatology: Skin warm, moist. Neurological: Exam shows: Alert and oriented x4, normal speech Available prior records, labs, EKG, rhythm strips reviewed and interpreted Labs/Diagnostic Data Labs Test 03/04/24 12:38 03/04/24 09:51 03/04/24 05:49 03/03/24 13:09 Range/Units POC Glucose 178 H 70-106 mg/dl Sodium Level 136 136-145 mmol/L Potassium Level 2.7 L 3.5-5.1 mmol/L Chloride Level 99 98-107 mmol/L Carbon Dioxide Level 28 20-31 mmol/L Anion Gap 9 5-15 Blood Urea Nitrogen 26 H 9-23 mg/dL Creatinine 1.29 0.700-1.30 mg/dL Glomerular Filtration Rate Calc 61 >90 mL/min BUN/Creatinine Ratio 20.2 H 10.0-20.0 Serum Glucose 191 H 74-106 mg/dL Lactic Acid Level 1.7 0.4-2.0 mmol/L Calcium Level 9.9 8.7-10.4 mg/dL Magnesium Level 2.4 1.6-2.6 mg/dL White Blood Count 20.6 H 4.4-10.8 10^3/uL Red Blood Count 5.21 4.5-5.90 10^6/uL Hemoglobin 17.0 13.5-17.5 g/dL Hematocrit 48.2 41.0-53.0 % Mean Corpuscular Volume 92.6 80.0-100.0 fL Mean Corpuscular Hemoglobin 32.7 H 28.0-32.0 pg Mean Corpuscular Hemoglobin Concent 35.3 32.0-36.0 g/dL Red Cell Distribution Width 12.9 11.8-14.3 % Platelet Count 143 140-450 10^3/uL Mean Platelet Volume 7.9 6.9-10.8 fL Neutrophils (%) (Auto) 87.1 H 37.0-80.0 % Lymphocytes (%) (Auto) 4.3 L 10.0-50.0 % Monocytes (%) (Auto) 8.5 0.0-12.0 % Eosinophils (%) (Auto) 0.0 0.0-7.0 % Basophils (%) (Auto) 0.1 0.0-2.0 % Neutrophils # (Auto) 17.9 H 1.6-8.6 10 ^3/uL Lymphocytes # (Auto) 0.9 0.4-5.4 10 ^3/uL Monocytes # (Auto) 1.8 H 0-1.3 10 ^3/uL Eosinophils # (Auto) 0 0-0.8 10 ^3/uL Basophils # (Auto) 0 0-0.2 10 ^3/uL Nucleated Red Blood Cells 0.0 % Total Bilirubin 0.8 0.2-1.0 mg/dL Aspartate Amino Transferase (AST) 54 H 13-40 U/L Alanine Aminotransferase (ALT) 44 H 7-40 U/L Alkaline Phosphatase 119 H 46-116 U/L Total Protein 7.2 5.7-8.2 g/dL Albumin 4.3 3.2-4.8 g/dL Troponin I High Sensitivity 20 </=54 ng/L Test 03/03/24 12:10 03/03/24 08:12 Range/Units Urine Color Yellow Yellow Urine Clarity Clear Clear Urine pH 5.5 5.0-9.0 Urine Specific [place] 1.023 1.001-1.035 Urine Protein 2+ H Negative Urine Ketones Negative Negative Urine Blood 1+ H Negative /uL Urine Nitrite Negative Negative Urine Bilirubin Negative Negative Urine Urobilinogen Normal Negative mg/dL Urine Leukocyte Esterase Negative Negative /uL Urine RBC 3 0 - 3 /hpf Urine WBC 1 0 - 3 /hpf Urine Squamous Epithelial Cells Few <5 /hpf Urine Bacteria None seen None Seen /hpf Urine Hyaline Casts Many 0 - 2 /lpf Urine Mucus Few None Seen Urine Glucose Normal Normal mg/dL Urine Opiates Screen Neg NEGATIVE Urine Fentanyl Screen Neg NEGATIVE Urine Barbiturates Screen Neg NEGATIVE Urine Phencyclidine Screen Neg NEGATIVE Urine Amphetamines Screen Pos NEGATIVE Urine Benzodiazepines Screen Neg NEGATIVE Urine Cocaine Screen Neg NEGATIVE Urine Cannabinoids Screen Pos NEGATIVE Hemoglobin A1c 5.3 <5.7 % A1C Lipase 33 12-53 U/L Assessment * Chest pain - troponin trend noted. Atypical chest pain. EKG negative for acute ischemic changes. Follow-up echo. Continue aspirin. Patient states has previous history of coronary angiogram with no intervention needed roughly 3 years prior. * Uncontrolled HTN - Coreg up titrated to 6.25 mg p.o. twice daily. Amlodipine 5 mg p.o. daily added. Continue trending. * Sepsis in setting of colitis - continued empiric antibiotics. Management per primary team. * Hypokalemia - monitor and replace electrolytes. * PVD - continue on aspirin and statin. * Polysubstance abuse - UDS positive for amphetamines and cannabinoids. Strongly advised against continued use. Case Discussed with Dr Mix. Atypical chest pain. Negative troponins. ACS ruled out. Follow-up echo. Continue blood pressure control and trending. Monitoring replace electrolytes. Critical care, time spent: 38 minutes This medical document was created using an electronic medical record system with voice recognition software and computerized dictation system. Although this document has been carefully reviewed, there might still be some phonetic and typographical errors. Occasional wrong-word or ``sound-alike substitutions may have occurred due to the inherent limitations of voice recognition software. These areas are purely typographical due to imperfections of the software programs and do not reflect any compromise in the patient's medical care. Please read the chart carefully and recognize, using context, where these substitutions have occurred. Plan discussed with: Patient Date of Service: Mar 04, 2024 Billing Provider: HUGO MIX MD Cardiology Common Codes: [id number] INP/OBS CARE (High), [id number] CARE 30-74 MIN [facility] Mar 04, 2024 13:54
[2024-03-04] MEDS: POTASSIUM CHL 20MEQ/100ML 100 ML IV SCH (13:57)
[2024-03-04] MEDS: cefTRIAXone 1GM/50ML D5W 50 ML IV SCH (13:58)
[2024-03-04] MEDS: cloNIDine HCL 0.1 MG TAB PO SCH (14:47)
[2024-03-04 15:35] LABS: COVID19 ANTIGEN SOFIA FIA NEGATIVE (NEGATIVE); Rapid Influenza A Negative (Negative); Rapid Influenza B Negative (Negative)
[2024-03-04] MEDS: amLODIPine BESYLATE 5 MG TAB PO ONE (16:27)
[2024-03-04] MEDS: TAMSULOSIN HYDROCHLORIDE 0.4 MG CAP PO SCH (18:13)
[2024-03-04] MEDS: AZITHROMYCIN 500MG/ 250ML 250 ML IV ONE (18:14)
[2024-03-05] VITALS (8 sets, daily range): BP systolic 126–146; BP diastolic 62–80; PULSE 71–107; RESP 17–20; TEMP 98.3–99.6; O2SAT 92–94
[2024-03-05 06:37] LABS: Alanine Aminotransferase 36 U/L (7-40); Albumin 3.5 g/dL (3.2-4.8); Alkaline Phosphatase 92 U/L (46-116); Anion Gap 7 (5-15); Aspartate Aminotransferase 29 U/L (13-40); BUN/Creatinine Ratio 18.2 (10.0-20.0); Blood Urea Nitrogen 20 mg/dL (9-23); Calcium 9.5 mg/dL (8.7-10.4); Carbon Dioxide 28 mmol/L (20-31); Chloride 102 mmol/L (98-107); Sodium 137 mmol/L (136-145)
[2024-03-05 06:38] LABS: Bilirubin, Total 0.7 mg/dL (0.2-1.0)
[2024-03-05 06:48] LABS: Glucose 125 mg/dL (74-106); Potassium 2.9 mmol/L (3.5-5.1)
[2024-03-05 06:54] LABS: Basophils # (auto) 0.1 10 ^3/uL (0-0.2); Basophils % (auto) 0.4 % (0.0-2.0); Eosinophils # (auto) 0 10 ^3/uL (0-0.8); Eosinophils % (auto) 0.1 % (0.0-7.0); Hematocrit 41.5 % (41.0-53.0); Hemoglobin 14.5 g/dL (13.5-17.5); Lymphocytes # (auto) 1.4 10 ^3/uL (0.4-5.4); Lymphocytes % (auto) 8.1 % (10.0-50.0); Mean Corpuscular Hemoglobin 32.5 pg (28.0-32.0); Monocytes # (auto) 1.3 10 ^3/uL (0-1.3); Monocytes % (auto) 7.7 % (0.0-12.0); Neutrophils # (auto) 14.1 10 ^3/uL (1.6-8.6); Neutrophils % (auto) 83.7 % (37.0-80.0); Nucleated Red Blood Cells % 0.2 %; Platelet Count (auto) 98 10^3/uL (140-450); Red Blood Cells 4.47 10^6/uL (4.5-5.90); Red Cell Distribution Width 12.8 % (11.8-14.3); White Blood Cell 16.9 10^3/uL (4.4-10.8)
[2024-03-05 09:17] LABS: Hepatitis B Surface Antibody Negative (Negative)
[2024-03-05 09:28] LABS: Hepatitis B Surface Antigen Negative (Negative)
[2024-03-05] MEDS: POTASSIUM CHL 20MEQ/100ML 100 ML IV SCH (09:41)
[2024-03-05 09:49] LABS: Hepatitis A Ab IgM Negative
[2024-03-05] MEDS: amLODIPine BESYLATE 5 MG TAB PO SCH (10:08)
[2024-03-05 10:13] LABS: Hepatitis A Total Antibody Positive (Negative)
[2024-03-05] MEDS: AZITHROMYCIN 500MG/ 250ML 250 ML IV SCH (11:57)
--- NOTE | 2024-03-05 13:30 | DVHPNRES ---
Progress Note Date Seen: Mar 05, 2024 Resident Creating Document: MY JIMENEZ RESIDENT Has the PT tested + for MRSA If YES, has PT been informed?: No Medical Necessity Reason Pt with a Central, PICC or Fol: No Subjective Review of Systems A 68 -year-old PMHx hypertension, BPH, Bilateral lower extremity amputee 4 years ago at [facility] due to possible septic shock MRSA infection who came to ED due to chest pain, SOB for 1 day since day of admission. The pain is located more in the epigastric area. Currents smoker of cigarretes and marihuana Objective vital signs Vital Sign Date Time Temp Pulse Resp B/P (MAP) Pulse Ox O2 Delivery O2 Flow Rate FiO2 03/05/24 10:09 92 127/71 03/05/24 09:00 98.9 20 92 98.9 03/04/24 20:00 Room Air* 0 21 Total Intake and Output 03/04/24 03/04/24 03/05/24 15:00 23:00 07:00 Intake Total 680 ml 1660 ml 400 ml Output Total 700 ml 650 ml Balance 680 ml 960 ml -250 ml medications Current Medications Medications Dose Ordered Sig/Isabel Route Start Time Stop Time Status Last Admin Dose Admin Hydralazine HCl 10 mg Q6HP PRN IV 03/03/24 10:30 03/04/24 04:43 10 MG Diagnostic Test (Pha) 1 strip ACHS 03/03/24 11:30 03/05/24 11:58 1 STRIP Insulin Human Regular HS SC 03/03/24 22:00 Insulin Human Regular AC SC 03/03/24 11:30 03/05/24 06:09 2 UNITS Dextrose 50 ml UD PRN IV 03/03/24 10:30 Morphine Sulfate 2 mg Q30MP PRN IV 03/03/24 11:00 Acetaminophen 650 mg Q6HP PRN PO 03/03/24 11:00 03/04/24 14:47 650 MG Lorazepam 0.5 mg Q6HP PRN PO 03/03/24 11:00 Docusate Sodium 100 mg DAILY PO 03/04/24 10:00 03/05/24 10:07 100 MG Nitroglycerin 0.4 mg Q5MINP PRN SL 03/03/24 11:00 Ondansetron HCl 4 mg Q4HP PRN IV 03/03/24 11:00 Nitroglycerin 0.4 mg Q5MINP PRN SL 03/03/24 11:00 UNV Morphine Sulfate 2 mg Q30M PRN IV 03/03/24 11:00 UNV Ceftriaxone Sodium 50 ml @ 100 mls/hr DAILY@09 IV 03/04/24 09:00 03/05/24 09:40 100 MLS/HR Metronidazole 100 ml @ 100 mls/hr Q8HR IV 03/03/24 22:00 03/05/24 05:14 100 MLS/HR Pantoprazole Sodium 40 mg DAILY IV 03/04/24 10:00 03/05/24 10:07 40 MG Morphine Sulfate 2 mg Q4HPRN PRN IV 03/04/24 07:00 03/05/24 04:37 2 MG Chlorthalidone 25 mg DAILY PO 03/04/24 10:00 03/05/24 10:08 25 MG Verapamil HCl 180 mg DAILY PO 03/04/24 10:00 03/04/24 12:03 180 MG Aspirin 81 mg DAILY PO 03/04/24 10:00 Clonidine HCl 0.2 mg TID PO 03/04/24 14:00 03/05/24 05:57 0.2 MG Gabapentin 600 mg BID PO 03/04/24 10:00 03/04/24 23:32 600 MG Azithromycin 250 ml @ 125 mls/hr DAILY IV 03/05/24 10:00 03/05/24 11:57 125 MLS/HR Tamsulosin HCl 0.4 mg DAILY@1800 PO 03/04/24 18:00 03/04/24 18:13 0.4 MG Sodium Chloride 1,000 ml @ 60 mls/hr [id number] IV 03/04/24 10:15 03/04/24 12:07 60 MLS/HR Carvedilol 6.25 mg Q12HR PO 03/04/24 22:00 03/05/24 10:09 6.25 MG Amlodipine Besylate 5 mg DAILY PO 03/05/24 10:00 03/05/24 10:08 5 MG Examination GEN: Healthy appearing, well-developed, NAD. PSYCH: Good Judgment. AOx3. Normal memory, mood, and affect. HEENT -Head: normocephalic atraumatic, no facial trauma, neck is supple -Eyes: PERRL, EOMI. No discharge or redness; -Ears: External ears are normal. Normal TMs. -Nose: Normal nares. -Mouth and throat: MMM. Normal gums, mucosa, palate,. Good dentition. NECK: Supple, with no masses. CV: RRR, no m/r/g. LUNGS: respiratory effort normal, speaks in full sentences, no tripod position, no accessory muscle use. Lungs clear to auscultation without rhonchi, wheezes, rales ABD: Soft, ND/NT. No evidence of fluid wave. No pulsatile masses on exam, rebound tenderness, Cardoso sign or pain over Mcburney's point. : N/A SKIN: Warm, well perfused. No skin rashes or abnormal lesions. MSK: No deformities or signs of scoliosis. Normal gait. EXT: absence bilateral legs NEURO: Ambulating with no limitations. Normal muscle strength and tone. No focal deficits laboratory and microbiology Laboratory Tests 03/05/24 05:24 Test 03/05/24 05:24 Range/Units Serum Glucose 125 H 74-106 mg/dL Microbiology Date/Time Source Procedure Growth Status 03/04/24 09:51 Blood Blood Culture - Preliminary NO GROWTH AFTER 24 HOURS OF INCUBATION. Resulted Problem List/Assessment/Plan Problem List/Assessment/Plan #Sepsis due to pneumonia gram +/gram - and Possible infectious colitis improving #Chest/epigastric abdominal pain due to pneumonia gram +/gram - #ACS ruled out #Hypokalemia 2,9 #ISABELA hemodinamically mediated due to sepsis #Hypercalcemia resolved #History of bilateral lower extremity amputee wheelchair-bound sign 4 years ago #Hypertensive urgency resolved #PAD? #Polysubstance use disorder #BPH #Thrombocytopenia Images: Abdomen/pelvis CT scan 1. Moderate concentric wall thickening of the descending colon and sigmoid colon, suggestive of mild infectious/inflammatory colitis . 2. Nodular left lower lobe densities may reflect mild pneumonia. Cardiac and diabetic diet Troponins neg EKG: PVCs, normal HR Potassium IV Fluids: 60cc/h:L sepsis and ISABELA AB: Azithromycin, ceftriaxone and metronidazole BP: carvedilol, chlorthalidine, hydralazine PRN Per cardio: amlodipine DC verapamil Keep aspirin Keep gabapentin Hold on DVT prophylaxis Case discussed with Dr Hawk Time spent on care 23 min Plan discussed with: Patient, Other Date of Service: Mar 05, 2024 Billing Provider: PRABHU HAWK MD Common Visit Codes: [id number] INP/OBS CARE(HIGH) Secondary Visit Codes: [id number] CARE PLAN 30 MINUTES MY JIMENEZ RESIDENT Mar 05, 2024 13:30 PRABHU HAWK MD Mar 05, 2024 19:59
--- NOTE | 2024-03-05 17:46 | DVHPN2 ---
Consult Progress Note Date Seen: Mar 05, 2024 Subjective Review of Systems: CVS:Normal, RESPIRATORY:Normal, NEURO:Normal Other Systems: Denies any cardiac symptoms Objective vital signs Vital Sign Date Time Temp Pulse Resp B/P (MAP) Pulse Ox O2 Delivery O2 Flow Rate FiO2 03/05/24 14:45 91 18 130/80 03/05/24 13:00 99.6 92 99.6 03/05/24 08:00 Room Air* 0 21 Total Intake and Output 03/04/24 03/04/24 03/05/24 15:00 23:00 07:00 Intake Total 680 ml 1660 ml 400 ml Output Total 700 ml 650 ml Balance 680 ml 960 ml -250 ml medications Current Medications Medications Dose Ordered Sig/Isabel Route Start Time Stop Time Status Last Admin Dose Admin Hydralazine HCl 10 mg Q6HP PRN IV 03/03/24 10:30 03/04/24 04:43 10 MG Morphine Sulfate 2 mg Q30MP PRN IV 03/03/24 11:00 Acetaminophen 650 mg Q6HP PRN PO 03/03/24 11:00 03/04/24 14:47 650 MG Lorazepam 0.5 mg Q6HP PRN PO 03/03/24 11:00 Docusate Sodium 100 mg DAILY PO 03/04/24 10:00 03/05/24 10:07 100 MG Nitroglycerin 0.4 mg Q5MINP PRN SL 03/03/24 11:00 Ondansetron HCl 4 mg Q4HP PRN IV 03/03/24 11:00 Nitroglycerin 0.4 mg Q5MINP PRN SL 03/03/24 11:00 UNV Morphine Sulfate 2 mg Q30M PRN IV 03/03/24 11:00 UNV Ceftriaxone Sodium 50 ml @ 100 mls/hr DAILY@09 IV 03/04/24 09:00 03/05/24 09:40 100 MLS/HR Metronidazole 100 ml @ 100 mls/hr Q8HR IV 03/03/24 22:00 03/05/24 14:33 100 MLS/HR Pantoprazole Sodium 40 mg DAILY IV 03/04/24 10:00 03/05/24 10:07 40 MG Morphine Sulfate 2 mg Q4HPRN PRN IV 03/04/24 07:00 03/05/24 14:45 2 MG Chlorthalidone 25 mg DAILY PO 03/04/24 10:00 03/05/24 10:08 25 MG Aspirin 81 mg DAILY PO 03/04/24 10:00 Clonidine HCl 0.2 mg TID PO 03/04/24 14:00 03/05/24 05:57 0.2 MG Gabapentin 600 mg BID PO 03/04/24 10:00 03/04/24 23:32 600 MG Azithromycin 250 ml @ 125 mls/hr DAILY IV 03/05/24 10:00 03/05/24 11:57 125 MLS/HR Tamsulosin HCl 0.4 mg DAILY@1800 PO 03/04/24 18:00 03/04/24 18:13 0.4 MG Sodium Chloride 1,000 ml @ 60 mls/hr [id number] IV 03/04/24 10:15 03/04/24 12:07 60 MLS/HR Carvedilol 6.25 mg Q12HR PO 03/04/24 22:00 03/05/24 10:09 6.25 MG Amlodipine Besylate 5 mg DAILY PO 03/05/24 10:00 03/05/24 10:08 5 MG Examination: LUNGS:Normal, CVS:Normal, NEURO:Normal laboratory and microbiology Laboratory Tests 03/05/24 05:24 Test 03/05/24 05:24 Range/Units Serum Glucose 125 H 74-106 mg/dL Problem List/Assessment/Plan Problem List/Assessment/Plan (Dr. Ramirez) * Chest pain - troponin trend noted. Atypical chest pain. EKG negative for acute ischemic changes. * Echocardiogram revealed EF 55% with grade I diastolic dysfunction. * Uncontrolled HTN - Coreg up titrated to 6.25 mg p.o. twice daily. Amlodipine 5 mg p.o. daily added. Continue trending. * Sepsis in setting of colitis - continued empiric antibiotics. Management per primary team. * Hypokalemia - monitor and replace electrolytes. * PVD - continue on aspirin and statin. * Polysubstance abuse - UDS positive for amphetamines and cannabinoids. Strongly advised against continued use. There is no further cardiac work-up indicated at this time. Kindly call if in need to re-consult. Thank you for allowing us to care for this patient. This medical document was created using an electronic medical record system with voice recognition software and computerized dictation system. Although this document has been carefully reviewed, there might still be some phonetic and typographical errors. Occasional wrong-word or ``sound-alike substitutions may have occurred due to the inherent limitations of voice recognition software. These areas are purely typographical due to imperfections of the software programs and do not reflect any compromise in the patient's medical care. Please read the chart carefully and recognize, using context, where these substitutions have occurred. Plan discussed with: Patient, Other Date of Service: Mar 05, 2024 Billing Provider: HUGO RAMIREZ MD Cardiology Common Codes: 09662-HAPHIZPDEK INP/OBS CARE(Mod) KIRAN BENNETT [facility] Mar 05, 2024 17:46
[2024-03-06] VITALS (8 sets, daily range): BP systolic 140–166; BP diastolic 60–95; PULSE 56–100; RESP 16–20; TEMP 98–98.8; O2SAT 93–96
[2024-03-06 07:58] LABS: Alanine Aminotransferase 26 U/L (7-40); Alkaline Phosphatase 91 U/L (46-116); Anion Gap 7 (5-15); Calcium 9.3 mg/dL (8.7-10.4); Carbon Dioxide 31 mmol/L (20-31); Chloride 102 mmol/L (98-107); Glucose 93 mg/dL (74-106); Sodium 140 mmol/L (136-145)
[2024-03-06 07:59] LABS: Albumin 3.5 g/dL (3.2-4.8); Aspartate Aminotransferase 19 U/L (13-40)
[2024-03-06 08:00] LABS: Bilirubin, Total 0.4 mg/dL (0.2-1.0); Blood Urea Nitrogen 24 mg/dL (9-23); Total Protein 5.7 g/dL (5.7-8.2)
[2024-03-06 08:09] LABS: Basophils # (auto) 0.1 10 ^3/uL (0-0.2); Basophils % (auto) 0.6 % (0.0-2.0); Eosinophils # (auto) 0.1 10 ^3/uL (0-0.8); Eosinophils % (auto) 1.1 % (0.0-7.0); Hematocrit 41.3 % (41.0-53.0); Hemoglobin 14.4 g/dL (13.5-17.5); Lymphocytes # (auto) 1.6 10 ^3/uL (0.4-5.4); Lymphocytes % (auto) 12.3 % (10.0-50.0); Mean Corpuscular Hemoglobin 32.8 pg (28.0-32.0); Mean Corpuscular Hgb Conc. 34.8 g/dL (32.0-36.0); Mean Corpuscular Volume 94.2 fL (80.0-100.0); Monocytes # (auto) 1.3 10 ^3/uL (0-1.3); Neutrophils # (auto) 9.8 10 ^3/uL (1.6-8.6); Platelet Count (auto) 116 10^3/uL (140-450); Red Blood Cells 4.38 10^6/uL (4.5-5.90); Red Cell Distribution Width 12.8 % (11.8-14.3); White Blood Cell 12.9 10^3/uL (4.4-10.8)
[2024-03-06] MEDS ORDERED: POTASSIUM CHL 20MEQ/100ML 100 ML IV SCH (09:15)
[2024-03-06] MEDS: SPIRONOLACTONE 25 MG TAB PO SCH (11:06)
[2024-03-06] MEDS: POTASSIUM EFFERVESENT TAB 25 MEQ GT ONE (11:12)
[2024-03-06] MEDS: POTASSIUM CHL 20MEQ/100ML 100 ML IV SCH (11:16)
[2024-03-06] MEDS ORDERED: DOXY50CA PO (11:35)
[2024-03-06] MEDS ORDERED: SPIR25TA8 PO (11:35)
--- NOTE | 2024-03-06 13:18 | DVHDSRES ---
Discharge Summary Date of Admission Resident Creating Document: MY JIMENEZ RESIDENT Mar 03, 2024 at 10:59 Date of Discharge: Mar 06, 2024 Admitting Diagnosis sepsis due to pneumonia Labs/Diagnostic Data: Laboratory Results Test 03/06/24 12:01 03/06/24 06:05 03/05/24 11:51 03/04/24 14:38 Potassium Level 3.8 mmol/L (3.5-5.1) White Blood Count 12.9 10^3/uL (4.4-10.8) Red Blood Count 4.38 10^6/uL (4.5-5.90) Hemoglobin 14.4 g/dL (13.5-17.5) Hematocrit 41.3 % (41.0-53.0) Mean Corpuscular Volume 94.2 fL (80.0-100.0) Mean Corpuscular Hemoglobin 32.8 pg (28.0-32.0) Mean Corpuscular Hemoglobin Concent 34.8 g/dL (32.0-36.0) Red Cell Distribution Width 12.8 % (11.8-14.3) Platelet Count 116 10^3/uL (140-450) Mean Platelet Volume 8.7 fL (6.9-10.8) Neutrophils (%) (Auto) 76.0 % (37.0-80.0) Lymphocytes (%) (Auto) 12.3 % (10.0-50.0) Monocytes (%) (Auto) 10.0 % (0.0-12.0) Eosinophils (%) (Auto) 1.1 % (0.0-7.0) Basophils (%) (Auto) 0.6 % (0.0-2.0) Neutrophils # (Auto) 9.8 10 ^3/uL (1.6-8.6) Lymphocytes # (Auto) 1.6 10 ^3/uL (0.4-5.4) Monocytes # (Auto) 1.3 10 ^3/uL (0-1.3) Eosinophils # (Auto) 0.1 10 ^3/uL (0-0.8) Basophils # (Auto) 0.1 10 ^3/uL (0-0.2) Nucleated Red Blood Cells 0.0 % Sodium Level 140 mmol/L (136-145) Chloride Level 102 mmol/L (98-107) Carbon Dioxide Level 31 mmol/L (20-31) Anion Gap 7 (5-15) Blood Urea Nitrogen 24 mg/dL (9-23) Creatinine 1.00 mg/dL (0.700-1.30) Glomerular Filtration Rate Calc 82 mL/min (>90) BUN/Creatinine Ratio 24.0 (10.0-20.0) Serum Glucose 93 mg/dL (74-106) Calcium Level 9.3 mg/dL (8.7-10.4) Total Bilirubin 0.4 mg/dL (0.2-1.0) Aspartate Amino Transferase (AST) 19 U/L (13-40) Alanine Aminotransferase (ALT) 26 U/L (7-40) Alkaline Phosphatase 91 U/L (46-116) Total Protein 5.7 g/dL (5.7-8.2) Albumin 3.5 g/dL (3.2-4.8) Cortisol AM Sample 16.12 ug/dL (5.27-22.45) POC Glucose 104 mg/dl (70-106) Influenza Type A Antigen Negative (Negative) Influenza Type B Antigen Negative (Negative) SARS-CoV-2 Antigen (Rapid) Negative (NEGATIVE) Test 03/04/24 09:51 03/04/24 05:49 03/03/24 13:09 03/03/24 12:10 Lactic Acid Level 1.7 mmol/L (0.4-2.0) Magnesium Level 2.4 mg/dL (1.6-2.6) Hepatitis A IgM Antibody Negative Hepatitis A Antibody Total Positive (Negative) Hepatitis B Surface Antigen Negative (Negative) Hepatitis B Surface Antibody Negative (Negative) Troponin I High Sensitivity 20 ng/L (</=54) Urine Color Yellow (Yellow) Urine Clarity Clear (Clear) Urine pH 5.5 (5.0-9.0) Urine Specific [place] 1.023 (1.001-1.035) Urine Protein 2+ (Negative) Urine Ketones Negative (Negative) Urine Blood 1+ /uL (Negative) Urine Nitrite Negative (Negative) Urine Bilirubin Negative (Negative) Urine Urobilinogen Normal mg/dL (Negative) Urine Leukocyte Esterase Negative /uL (Negative) Urine RBC 3 /hpf (0 - 3) Urine WBC 1 /hpf (0 - 3) Urine Squamous Epithelial Cells Few /hpf (<5) Urine Bacteria None seen /hpf (None Seen) Urine Hyaline Casts Many /lpf (0 - 2) Urine Mucus Few (None Seen) Urine Glucose Normal mg/dL (Normal) Urine Opiates Screen Neg (NEGATIVE) Urine Fentanyl Screen Neg (NEGATIVE) Urine Barbiturates Screen Neg (NEGATIVE) Urine Phencyclidine Screen Neg (NEGATIVE) Urine Amphetamines Screen Pos (NEGATIVE) Urine Benzodiazepines Screen Neg (NEGATIVE) Urine Cocaine Screen Neg (NEGATIVE) Urine Cannabinoids Screen Pos (NEGATIVE) Test 03/03/24 08:12 Hemoglobin A1c 5.3 % A1C (<5.7) Lipase 33 U/L (12-53) Other Laboratory Tests 03/06/24 12:01 03/06/24 06:05 Brief Hx & Hospital Course: The patient is a 68-year-old male with a 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 During hospitalization, hypokalemia (K 2.9) was identified and managed. Infectious workup revealed pneumonia and possible infectious colitis based on imaging, which showed moderate wall thickening of the sigmoid and descending colon, along with nodular densities in the left lung suggestive of mild pneumonia. The patient responded well to treatment, including fluids, potassium supplementation, and antibiotic therapy with azithromycin, ceftriaxone, and metronidazole. Also hypertension management was optimized, spironolactone was added. Also oral AB are prescribing to complete course. The patient's chlorthalidone was discontinued due to persistent hypokalemia. Follow-up with the primary care clinic has been arranged for further evaluation, including renin and aldosterone levels, to investigate potential underlying etiologies. Monitoring of potassium levels will also be essential during outpatient follow-up. GEN: Healthy appearing, well-developed, NAD. PSYCH: Good Judgment. AOx3. Normal memory, mood, and affect. HEENT -Head: normocephalic atraumatic, no facial trauma, neck is supple -Eyes: PERRL, EOMI. No discharge or redness; -Ears: External ears are normal. Normal TMs. -Nose: Normal nares. -Mouth and throat: MMM. Normal gums, mucosa, palate,. Good dentition. NECK: Supple, with no masses. CV: RRR, no m/r/g. LUNGS: respiratory effort normal, speaks in full sentences, no tripod position, no accessory muscle use. Lungs clear to auscultation without rhonchi, wheezes, rales ABD: Soft, ND/NT. No evidence of fluid wave. No pulsatile masses on exam, rebound tenderness, Cardoso sign or pain over Mcburney's point. : N/A SKIN: Warm, well perfused. No skin rashes or abnormal lesions. MSK: No deformities or signs of scoliosis. Normal gait. EXT: absence bilateral legs NEURO: Ambulating with no limitations. Normal muscle strength and tone. No focal deficits Case discussed with Dr Hawk Time spent on care 23 min Consults/Reason for consult cardiology due to chest pain Operations or Procedures Exam: CT CT AB PEL WO CON-NO ORAL OR IV History: epigastric pain Comparison Study: None Technique: Multidetector spiral CT of the abdomen was performed from lung bases to pubic symphysis. Imaging was performed without IV contrast. Axial, coronal and sagittal multiplanar reformats were obtained from the axial data set by the technologist. Radiation Dose : 1. Abdomen/Pelvis: CTDIvol 8.0 mGy, DLP 413.81 mGy*cm. Findings: Evaluation of solid organs is limited due to lack of intravenous contrast use. Lung Bases: Nodular densities in the left lower lobe may reflect mild pneumonia Liver: The liver is normal in size. No focal lesions. Gallbladder and Biliary Tree: Unremarkable Spleen: Unremarkable Pancreas: The pancreas is grossly normal in appearance. Adrenal Glands: Unremarkable Kidneys: Kidneys are grossly normal without calculi or hydronephrosis. Bladder: Grossly unremarkable for degree of distention. Bowel: The stomach is grossly normal in appearance. Moderate concentric wall thickening of the descending colon and sigmoid colon, suggestive of mild infectious/inflammatory colitis . The appendix is not visualized; however, no secondary findings of acute appendicitis identified. Ascites: Absent Lymphadenopathy: No mesenteric, retroperitoneal or periportal lymphadenopathy. Abdominal Wall and Mesentery: Unremarkable. Vasculature: The visualized abdominal aorta is normal in size and caliber. Evaluation of abdominal and pelvic vessels is limited due to lack of intravenous contrast. Pelvic Organs: Unremarkable Musculoskeletal: No aggressive focal bony lesions, acute fractures or dislocation. Moderate degenerative changes throughout the lumbar spine. Bilateral iliac artery stents are noted. IMPRESSION: 1. Moderate concentric wall thickening of the descending colon and sigmoid colon, suggestive of mild infectious/inflammatory colitis . 2. Nodular left lower lobe densities may reflect mild pneumonia Condition at Discharge: Stable Final Diagnosis/Problems List #Sepsis due to pneumonia gram +/gram - and Possible infectious colitis improving #Chest/epigastric abdominal pain due to pneumonia gram +/gram - #ACS ruled out #Hypokalemia 2,9 #ISABELA hemodinamically mediated due to sepsis #Hypercalcemia resolved #History of bilateral lower extremity amputee wheelchair-bound sign 4 years ago #Hypertensive urgency resolved #PAD? #Polysubstance use disorder #BPH #Thrombocytopenia Discharge Disposition: Home Discharge Instruct/Medications Diet: Consistent carbohydrate, Cardiac 2g Na,low cholest Activity: No Restrictions, As Tolerated Follow Up/Referral: dc clinic just to f/u renin and aldosterone results Medications: see prescription Discharge Statement: "Patient was advised to return to the ER or call 911 if any headaches, dizziness, shortness of breath, chest pain, abdominal pain, bleeding, fevers, or worsening of medical condition. Patient was counseled about treatment plan, medications, possible side effects, patientverbalized understanding. All questions were answered to the best of my ability. This discharge took greater then 30 minutes in planning, reviewing documentation, counseling the patient, and discussing with other team members." ASSESSMENT ASSESSMENT Assessment pneumonia colitis hypokalemia Date of Service: Mar 06, 2024 Billing Provider: PRABHU HAWK MD Common Visit Codes: 55009-IHO/OBS DISCH DAY >30min MY JIMENEZ RESIDENT Mar 06, 2024 13:18 PRABHU HAWK MD Mar 07, 2024 18:08
== END 2024-03-06 16:20 | disposition home or self-care (01) | DRG 871 ==
LOC: EDBD 07:33 → ER 07:33 → TELE 10:59 → TELE-WESTW 23:08
PROVIDERS: ADMIT Internal Medicine Geriatric Medicine; ATTEND Internal Medicine Geriatric Medicine
DX: A41.50 Gram-negative sepsis, unspecified (principal); J15.69 Pneumonia due to other Gram-negative bacteria; J15.9 Unspecified bacterial pneumonia; A09 Infectious gastroenteritis and colitis, unspecified; N17.9 Acute kidney failure, unspecified; E83.52 Hypercalcemia; E87.6 Hypokalemia; N18.9 Chronic kidney disease, unspecified; Z20.822 Contact with and (suspected) exposure to COVID-19; I12.9 Hypertensive chronic kidney disease with stage 1 through stage 4 chronic kidney disease, or unspecified chronic kidney disease; F19.10 Other psychoactive substance abuse, uncomplicated; F17.210 Nicotine dependence, cigarettes, uncomplicated; I73.9 Peripheral vascular disease, unspecified; I16.0 Hypertensive urgency; N40.0 Benign prostatic hyperplasia without lower urinary tract symptoms; D69.6 Thrombocytopenia, unspecified; Z89.611 Acquired absence of right leg above knee; Z89.612 Acquired absence of left leg above knee; Z86.718 Personal history of other venous thrombosis and embolism; Z99.3 Dependence on wheelchair; Z83.3 Family history of diabetes mellitus; Z79.899 Other long term (current) drug therapy
CPT/HCPCS: 36415; 71045; 74176; 80048; 80053; 80307; 81001; 82088; 82533; 82962; 83036; 83605; 83690; 83735; 84132; 84244; 84484; 85025; 86706; 86708; 86709; 87040; 87340; 87426; 87804; 93005; 93306; 96365; G0378; J1815; J2405; J2470; J3480; J3490; Q0162